=== PATIENT | female | born 1975 | race Caucasian/White ===

== ENCOUNTER → 2018-04-26 | Outpatient (CLI) | payer BC | END | disposition home or self-care (01) | LOC: CFH 08:22 | PROVIDERS: ATTEND Obstetrics & Gynecology | DX: Z12.31 Encounter for screening mammogram for malignant neoplasm of breast (principal) | CPT/HCPCS: 77063; 77067 ==

== ENCOUNTER → 2018-05-17 | Outpatient (CLI) | payer BC | END | disposition home or self-care (01) | LOC: CFH 13:19 | PROVIDERS: ATTEND Obstetrics & Gynecology | DX: N64.89 Other specified disorders of breast (principal) | CPT/HCPCS: 77065 ==